=== PATIENT | male | born 1980 | race Caucasian/White ===

== ENCOUNTER 2021-01-16 14:38 | Emergency (ER) | payer OTHER, SELFPAY ==
[2021-01-16 14:48] VITALS: BP 120/95; PULSE 71; RESP 16; TEMP 36.8; O2SAT 98
[2021-01-16 14:55] VITALS: RESP 18
--- NOTE | 2021-01-16 15:15 | DI.RAD_ITS ---
Exam(s) XR ANKLE RT COMPLETE EXAM: XR ANKLE RT COMPLETE CLINICAL HISTORY: Overlying ulcer, r/o osteo. TECHNIQUE: 2D digital imaging was performed. COMPARISON: No exams were available for comparison FINDINGS: BONES: No acute fracture is present. There is a question of mild cortical disruption on the oblique view at the medial aspect of the medial malleolus. Developing osteomyelitis cannot be excluded. JOINTS: The ankle mortise is normally aligned. SOFT TISSUE: There is soft tissue swelling about the ankle medially. IMPRESSION: Question of mild cortical disruption on the oblique view at the medial aspect of the medial malleolus . Developing osteomyelitis cannot be excluded. If there is continued clinical concern an MRI may be considered for further evaluation. DATA REPOSITORY: RADIATION DOSE DELIVERED:
--- NOTE | 2021-01-16 15:34 | ED.GENADUL_ITS ---
Discharge Plan Disposition Patient Disposition: [facility] Condition: Stable Discharge Details Clinical Impression: Cellulitis Primary Care Provider: Gelacio Carrasco ED Provider: Scott Lynch Home Meds and New Rx's Prescriptions: New levofloxacin 750 mg tablet 750 mg PO DAILY Qty: 14 RF: 0 Continued acetaminophen [Tylenol] 325 MG tablet 650 mg PO TID RF: 0 naproxen 375 MG tablet 375 mg PO BID RF: 0 buprenorphine HCl 8 MG tablet, sublingual 16 mg PO DAILY RF: 0 pentoxifylline 400 mg Tablet Extended Release 800 mg PO TID RF: 0 docusate sodium 100 mg Capsule 100 mg PO BID RF: 0 timolol maleate 0.5 % Drops 20 drp DAILY RF: 0 Subtex 16 mg PO DAILY RF: 0 Discontinued cephalexin 500 MG capsule 500 mg PO Q6H Qty: 40 RF: 0 sulfamethoxazole-trimethoprim 1 TAB tablet 2 ea PO BID Qty: 40 RF: 0 Discharge Instructions Instructions: Cellulitis (ED) Additional Instructions: Levaquin as directed. I am giving you a 14-day supply, I would like you to evaluated by your [facility] team before the end of the 14 days, you would likely need to be on this medication for a total of 5 to 6 weeks. Continue dressing to the two wounds across to lower legs but the wound across your ankle, however orthopedic provider recommends wet-to-dry which they should be able to do at the present. Rest, elevate, cool and/or warm compresses as tolerated. Please watch for new or worsening symptoms and return to ER for any concerns. I do recommend reaching out to you regarding team tomorrow to make them aware of your visit today for outpatient reevaluation. Discharge Data Discharge Date/Time-TO BE ENTERED AT DEPARTURE: 01/16/21 18:30 Medical Decision Making 40-year-old gentleman who will reside in a corrections facility for the next 20- month, presents for acute on chronic bilateral leg wounds. Patient states the newest wound is approximately 2 weeks old. Denies fever. Patient is followed b y vascular at [facility] and scheduled for procedure in the next couple of weeks. Will obtain wound culture from his right ankle, CBC, CMP, and will likely initiate antibiotic therapy covering for MRSA. Also obtain x-ray of the right ankle where the new wound is for further evaluation of potential osteomyelitis. Patient remains afebrile. White blood cell count of 7.49, electrolytes unremarkable, creatinine 0.6 with a GFR greater than 60. X-ray read by virtual radiology as potential cortical disruption, cannot rule out osteomyelitis. I added on a sed rate and CRP, patient was already given a single dose of oral doxycycline. I will now consult with Dr. Pena, orthopedics. After discussing imaging, evaluation and presentation as well as laboratory values, he feels as though the patient can safely be discharged back to the corrections facility using a wet-to-dry dressing on the wound. He would like to initiate 750 p.o. Levaquin, 14 days from the ER, will give first dose now, patient will likely require a total of 6 weeks. He states he prefers Levaquin given its better bone penetration. He would like the patient to be evaluated by his [facility] team in the next 1-2 weeks, fortunately patient does already have an appointment set up. At this time he feels as though outpatient therapy is reasonable but if the patient becomes septic or toxic appearing that admission is likely indicated. Given the patient is on buprenorphine, will obtain baseline EKG. EKG obtained and then first dose of Levaquin given. Appropriate dressings applied to all wounds. Patient had a sandwich and drink coffee while here in the ER. Remains well, nontoxic appearing. Discussed work- up and plan with patient and traffic police officer. No additional questions or concerns and comfortable discharge at this time. Strict discharge and return precautions given. This documentation was generated using [employer] dictation system, please disregard any oddities of phrase or misspellings. CRP 2.15, sed rate 23 Medical Records Medical records reviewed: Yes I reviewed the patient's medical records. Imaging Data Radiologic Study: Attestation: I personally reviewed and interpreted this imaging study as follows: Imaging: X-Ray Radiologist's impression: Exam: XR Right Ankle Exam date and time: 01/16/2021 3:27 PM Age: 40 years old Clinical indication: Pain; Ankle; Right; Patient HX: Overlying ulcer, R/O osteo TECHNIQUE: Imaging protocol: XR Right ankle. Views: 3 or more views. COMPARISON: No relevant prior studies available. FINDINGS: Bones/joints: Mild cortical disruption is noted along the medial malleolus and may be consistent with developing osteomyelitis. There is no evidence of acute fracture. There is no evidence of joint malalignment or dislocation. Soft tissues: Overlying soft tissue swelling is present. Further evaluation is recommended. IMPRESSION: 1. Mild cortical disruption is noted along the medial malleolus and may be cons istent with developing osteomyelitis. Overlying soft tissue swelling is present. Further evaluation is recommended. 2. No evidence of acute fracture. 3. No evidence of acute dislocation. Lab Data Lab results reviewed: Yes I reviewed the patient's lab results. Labs: 01/16/21 17:15 Ankle - Right Wound Culture - Pending 01/16/21 17:15 Ankle - Right Gram Stain - Final 01/16/21 15:40 Ankle - Left Wound Culture - Pending 01/16/21 15:40 Ankle - Left Gram Stain - Final Laboratory Tests Range/Units 01/16/21 01/16/21 01/16/21 16:20 16:20 16:20 WBC (4.4-10.8) 10^3/uL 7.49 RBC (4.36-5.78) 10^6/uL 4.20 L Hgb (13.5-17.5) g/dL 12.3 L Hct (40.0-50.0) % 35.3 L MCV (80-95) fL 84.0 MCH (27.0-33.0) pg 29.3 MCHC (32.0-36.0) % 34.8 RDW (11.8-14.1) % 13.1 Plt Count (130-400) 10^3/uL 202 MPV (8.0-11.0) fL 9.1 Immature Gran % 0.3 Neutrophils % 54.9 Lymphocytes % 33.8 Monocytes % 9.2 Eosinophils % 1.7 Basophils % 0.1 Nucleated RBC % % 0 Absolute Neutrophils (1.2-6.7) 10^3/uL 4.11 Absolute Lymphocytes (1.2-3.4) 10^3/uL 2.53 Absolute Monocytes (0.1-0.8) 10^3/uL 0.69 Absolute Eosinophils (0.0-0.7) 10^3/uL 0.13 Absolute Basophils (0.0-0.2) 10^3/uL 0.01 ESR (0-15) mm/hr Sodium (136-145) mmol/L 139 Potassium (3.5-5.1) mmol/L 4.1 Chloride (98-107) mmol/L 105 Carbon Dioxide (21.0-32.0) mmol/L 27.1 Anion Gap (3-11) mmol/L 6.9 BUN (7-18) mg/dL 19 H Creatinine (0.70-1.30) mg/dL 0.6 L Estimated GFR/1.73 m2 (mL/min/1.73m2) >= 60.00 Glucose (74-106) mg/dL 98 Calcium (8.5-10.1) mg/dL 8.9 Total Bilirubin (0.2-1.0) mg/dL 0.8 AST (15-37) U/L 28 ALT (16-63) U/L 36 Alkaline Phosphatase (46-116) U/L 153 H C-Reactive Protein (0.0-0.3) mg/dL 2.15 H Total Protein (6.4-8.2) g/dL 8.0 Albumin (3.4-5.0) g/dL 3.7 Range/Units 01/16/21 16:20 WBC (4.4-10.8) 10^3/uL RBC (4.36-5.78) 10^6/uL Hgb (13.5-17.5) g/dL Hct (40.0-50.0) % MCV (80-95) fL MCH (27.0-33.0) pg MCHC (32.0-36.0) % RDW (11.8-14.1) % Plt Count (130-400) 10^3/uL MPV (8.0-11.0) fL Immature Gran % Neutrophils % Lymphocytes % Monocytes % Eosinophils % Basophils % Nucleated RBC % % Absolute Neutrophils (1.2-6.7) 10^3/uL Absolute Lymphocytes (1.2-3.4) 10^3/uL Absolute Monocytes (0.1-0.8) 10^3/uL Absolute Eosinophils (0.0-0.7) 10^3/uL Absolute Basophils (0.0-0.2) 10^3/uL ESR (0-15) mm/hr 23 H Sodium (136-145) mmol/L Potassium (3.5-5.1) mmol/L Chloride (98-107) mmol/L Carbon Dioxide (21.0-32.0) mmol/L Anion Gap (3-11) mmol/L BUN (7-18) mg/dL Creatinine (0.70-1.30) mg/dL Estimated GFR/1.73 m2 (mL/min/1.73m2) Glucose (74-106) mg/dL Calcium (8.5-10.1) mg/dL Total Bilirubin (0.2-1.0) mg/dL AST (15-37) U/L ALT (16-63) U/L Alkaline Phosphatase (46-116) U/L C-Reactive Protein (0.0-0.3) mg/dL Total Protein (6.4-8.2) g/dL Albumin (3.4-5.0) g/dL ECG Data Attestation: I personally reviewed and interpreted this ECG (s) as follows: Interpretation: Please see official report of pain. Sinus bradycardia, ventricular rate is 46. No STEMI. No interval prolongation. HPI General Mode of arrival: ambulatory . Date/Time Provider Initiated Documentation: 01/16/21 14:40 . Limitations to Documentation: no limitations . Information obtained by: patient and police (In police custody) . HPI Narrative: This is a 40-year-old gentleman, past medical history that includes hypertension, history of drug abuse, chronic leg wounds, osteomyelitis, currently in police custody and residing in corrections the next 20-month presenting for concerns of right lower extremity infection. Patient reports that he has had recurrent bilateral lower extremity infections and has poor circulation at baseline. Is followed at [facility] by vascular and scheduled to have the procedure in the next week or so, patient unsure of exact date and exactly what the procedure is. Patient states that he was on Keflex approximately 3 weeks ago for what appeared to be an infection of one of his chronic wounds. His primary concern today is a wound on his right ankle that has been present for approximately 2 weeks. He reports that the surrounding area is red, warm, painful, no obvious drainage. He denies any numbness, tingling, weakness, fever. Believes that his tetanus status is up-to-date. He denies rash or lesions elsewhere on his body. Related Data Home Medications Medication Instructions Recorded Confirmed acetaminophen [Tylenol] 650 mg PO TID 12/01/17 01/16/21 buprenorphine HCl 16 mg PO DAILY 12/01/17 01/16/21 naproxen 375 mg PO BID 12/01/17 12/01/17 Subtex 16 mg PO DAILY 01/16/21 01/16/21 docusate sodium 100 mg PO BID 01/16/21 01/16/21 levofloxacin 750 mg PO DAILY #14 tab 01/16/21 pentoxifylline 800 mg PO TID 01/16/21 01/16/21 timolol maleate 20 drp DAILY 01/16/21 01/16/21 Previous Rx's Medication Instructions Recorded levofloxacin 750 mg PO DAILY #14 tab 01/16/21 Allergies Allergy/AdvReac Type Severity Reaction Status Date / Time loperamide [From Imodium A-D] Allergy Intermediate Hives Unverified 01/16/21 14:58 tegaderm tape Allergy Mild Uncoded 01/16/21 14:58 General Stated Complaint: GenMedical HARPER: 3 Review of Systems Constitutional Constitutional: Denies fever(s) Cardiovascular Cardiovascular: Denies chest pain and Denies dyspnea Respiratory Respiratory: Denies dyspnea Musculoskeletal Musculoskeletal: Denies arthralgias, Denies numbness and Denies tingling Integumentary/Breasts Skin/Breast: Reports erythema Neurologic Neurologic: Denies numbness and Denies tingling [facility] Social History Smoking/Tobacco Use Status: Former Tobacco Use Smoking risk assessment performed?: Yes Alcohol Intake: never Substance use type: former substance user Do you feel safe in your relationship?: Yes Exam Const General: cooperative, comfortable and no acute distress Orientation: alert and awake [facility] Head: normal to inspection, normocephalic and atraumatic Eyes General: appearance normal, both eyes and all related structures Conjunctivae: conjunctivae normal Neck Neck: normal visual inspection, trachea midline and supple Resp Effort & Inspection: normal respiratory effort and able to speak in complete sentences Auscultation: clear to auscultation bilaterally Cardio Rate: regular rate Rhythm: regular rhythm Skin General skin exam: no rashes or lesions noted Neuro General: patient alert, patient awake, moves all extremities and no focal motor deficits Cognition: normal cognition Speech: speech normal Gait: normal gait Motor: muscle tone normal throughout Sensory Exam: no sensory deficits noted Extrem General: full ROM and capillary refill normal Other: Bilateral lower extremity chronic changes consistent with venous stasis. There are total of 3 separate wounds. He has a single wound bilateral lower extremities anterior tib region approximately 3 inches vertically, 1-1/2 horizontally. These wounds appear to be healing-scabbing. There is no drainage, weepage, surrounding erythema, warmth. Patient does have diffuse mild discomfort. Along his entire medial right ankle there is a superficial wound which is tender, borders are erythematous, there does appear to be a scant serous, potentially minimally purulent drainage. There is not appear to be any tunneling. Neuro, vascular, tendon intact. No bony point tenderness. No lymphangitic streaking. Capillary refill normal bilaterally. 1+ dorsalis pedal pulse bilateral. Psych Appearance: grossly normal Mental Status: mental status grossly normal Course Vital Signs Vital signs: Vital Signs Temperature 36.8 C 01/16/21 14:48 Pulse 71 01/16/21 14:48 Respiratory Rate 16 01/16/21 14:48 Blood Pressure 120/95 H 01/16/21 14:48 Pulse Oximetry 98 01/16/21 14:48 Temperature 36.8 C 01/16/21 14:48 Temperature Source Tympanic 01/16/21 14:48 Pulse 71 01/16/21 14:48 Respiratory Rate 18 01/16/21 14:55 Respiratory Effort Non-Labored 01/16/21 14:55 Respiratory Depth Normal 01/16/21 14:55 Respiratory Pattern Normal 01/16/21 14:55 Blood Pressure 120/95 H 01/16/21 14:48 Pulse Oximetry 98 01/16/21 14:48 Oxygen Delivery Method Room Air 01/16/21 14:48 Oxygen Flow Rate 0 01/16/21 14:48 Pain Level 8 01/16/21 14:48 Lab/Test Results Lab/Test Results: 01/16/21 15:33 Ankle - Left Wound Culture - Pending 01/16/21 15:33 Ankle - Left Gram Stain - Pending
[2021-01-16 16:27] LABS: Abs Immature Grans 0.02 10^3/uL (0.0-0.06); Absolute Basophil Count 0.01 10^3/uL (0.0-0.2); Absolute Eosinophil Count 0.13 10^3/uL (0.0-0.7); Absolute Lymphocyte Count 2.53 10^3/uL (1.2-3.4); Absolute Monocyte Count 0.69 10^3/uL (0.1-0.8); Absolute Neutrophil Count 4.11 10^3/uL (1.2-6.7); Basophils % 0.1; Eosinophils % 1.7; HCT 35.3 % (40.0-50.0); HGB 12.3 g/dL (13.5-17.5); Immature Grans % 0.3; Lymphocytes % 33.8; MCH 29.3 pg (27.0-33.0); MCHC 34.8 % (32.0-36.0); MPV 9.1 fL (8.0-11.0); Monocytes % 9.2; Neutrophils % 54.9; Nucleated RBC 0 %; Platelet Count 202 10^3/uL (130-400); RDW 13.1 % (11.8-14.1); RDW-SD 37.6 fL; WBC 7.49 10^3/uL (4.4-10.8)
[2021-01-16 16:43] LABS: ALT 36 U/L (16-63); AST 28 U/L (15-37); Albumin 3.7 g/dL (3.4-5.0); Alkaline Phosphatase 153 U/L (46-116); Anion Gap 6.9 mmol/L (3-11); BUN 19 mg/dL (7-18); Bilirubin, Total 0.8 mg/dL (0.2-1.0); CO2 27.1 mmol/L (21.0-32.0); CREATININE 0.6 mg/dL (0.70-1.30); Calcium 8.9 mg/dL (8.5-10.1); Chloride 105 mmol/L (98-107); Glucose 98 mg/dL (74-106); Potassium 4.1 mmol/L (3.5-5.1); Sodium 139 mmol/L (136-145)
--- NOTE | 2021-01-16 16:57 | DI.VRAD_ITS ---
PROCEDURE INFORMATION: Exam: XR Right Ankle Exam date and time: 01/16/2021 3:27 PM Age: 40 years old Clinical indication: Pain; Ankle; Right; Patient HX: Overlying ulcer, R/O osteo TECHNIQUE: Imaging protocol: XR Right ankle. Views: 3 or more views. COMPARISON: No relevant prior studies available. FINDINGS: Bones/joints: Mild cortical disruption is noted along the medial malleolus and may be consistent with developing osteomyelitis. There is no evidence of acute fracture. There is no evidence of joint malalignment or dislocation. Soft tissues: Overlying soft tissue swelling is present. Further evaluation is recommended. IMPRESSION: 1. Mild cortical disruption is noted along the medial malleolus and may be consistent with developing osteomyelitis. Overlying soft tissue swelling is present. Further evaluation is recommended. 2. No evidence of acute fracture. 3. No evidence of acute dislocation. Dictated and Authenticated by: Dajuan Jones MD. Ordering:WESTON Chavez MD
[2021-01-16 17:05] VITALS: BP 119/81; PULSE 58; TEMP 36.2; O2SAT 95
[2021-01-16] MEDS: Doxycycline Hyclate 100 MG CAP PO (17:09)
--- NOTE | 2021-01-16 17:15 | RT.EKG_ITS ---
APPROVED REPORT Exam: Resting ECG Reason for Exam: Infection Patient Location: E HR:46 bpm ECG Measurements Heart Rate 46 AXIS NH 173 P 32 QRSd 89 QRS 14 QT 442 T 33 QTc 386 Conclusion Sinus bradycardia...rate< 60. No STEMI. I have reviewed and interpreted ECG and agree with software generated interpretation.
[2021-01-16 17:25] LABS: ESR 23 mm/hr (0-15)
[2021-01-16 17:32] LABS: C-Reactive Protein 2.15 mg/dL (0.0-0.3)
[2021-01-16] MEDS: levoFLOXacin 500 MG, levoFLOXacin 250 MG 750 MG PO (18:26)
== END 2021-01-16 18:30 | disposition home or self-care (01) ==
PROVIDERS: Emergency Provider Physician Assistant; PCP Emergency Medicine
DX: L03.115 Cellulitis of right lower limb (principal); L97.311 Non-pressure chronic ulcer of right ankle limited to breakdown of skin; L97.329 Non-pressure chronic ulcer of left ankle with unspecified severity; F11.20 Opioid dependence, uncomplicated
CPT/HCPCS: 36415; 80053; 85652; 87077; 93005; 99285; 73610; 85025; 86140; 87070; 87186; 87205; 93010; 99284

== ENCOUNTER 2021-05-06 15:48 | Emergency (ER) | payer OTHER, SELFPAY ==
[2021-05-06 16:01] VITALS: BP 158/108; PULSE 64; RESP 18; TEMP 36.7; O2SAT 95
--- NOTE | 2021-05-06 16:14 | W.ED.GENAD ---
Discharge Plan Disposition Patient Disposition: [facility] Condition: Stable Discharge Details Clinical Impression: Cellulitis Primary Care Provider: Gelacio Carrasco ED Provider: Scott Lynch Home Meds and New Rx's Prescriptions: New levofloxacin 750 mg tablet 750 mg PO DAILY Qty: 14 RF: 0 Continued acetaminophen [Tylenol] 325 MG tablet 650 mg PO TID RF: 0 naproxen 375 MG tablet 375 mg PO BID RF: 0 buprenorphine HCl 8 MG tablet, sublingual 16 mg PO DAILY RF: 0 pentoxifylline 400 mg Tablet Extended Release 800 mg PO TID RF: 0 docusate sodium 100 mg Capsule 100 mg PO BID RF: 0 timolol maleate 0.5 % Drops 20 drp DAILY RF: 0 Subtex 16 mg PO DAILY RF: 0 nortriptyline 10 mg Capsule 10 mg PO DAILY RF: 0 Discharge Instructions Instructions: Cellulitis (ED) Additional Instructions: At this time you do not have elevated white count or fever but your lactate and inflammatory markers are elevated. We discussed admission but you have declined. Instead you would prefer to take oral antibiotics, continue your wound care at the corrections facility, and have your outpatient MRI through [facility] as already scheduled. As we discussed I do recommend additional wound care for your chronic wounds, I would talk with your facility provider to attempt to set this up. Please watch for new or worsening symptoms and return to the ER for any concern Discharge Data Discharge Date/Time-TO BE ENTERED AT DEPARTURE: 05/06/21 21:05 Medical Decision Making 40-year-old gentleman with chronic venous stasis changes bilateral lower extremities with ulcers, followed by vascular at [facility], currently resides in a corrections facility. Because he is in a correct facility he is not allowed to know the exact time or date of his MRI but states he was told he has an MRI of his bilateral lower extremities sometime in the next week or 2. Will provide a single gram of Tylenol now for analgesia. Clinically his pulse is in the 60s, he is afebrile, no evidence of toxicity or sepsis. Both wounds were dressed prior to arrival, undressed wounds for further evaluation. There does not appear to be any drainage for wound culture. No evidence of any lymphangitic streaking. Patient states that he is an extremely hard IV stick and would prefer attempts made with ultrasound. Multiple attempts for IV access made by multiple RNs with and without ultrasound, all unsuccessful. Lab was able to draw blood. Will obtain x-rays of bilateral tib-fib and feet for further evaluation of possible osteomyelitis. Laboratory values reveal a white blood cell count of 8.89. No evidence of anemia. Platelet count is 254. ESR is elevated at 23 and his lactate is also elevated at 2.4. CRP elevated at 2.47. his electrolytes are unremarkable, creatinine 0.8 with a GFR greater than 60. Urinalysis unremarkable for infection. Previous CRP in December was 2.15 and ESR was 23. No previous lactate. Bilateral tib-fib x-rays read as unremarkable per radiology. The left foot was read as unremarkable and the right foot was read as question of osteo versus artifact along his right great toe. Given this, obtained a dedicated view of the right great toe. This was read as negative per radiology. Upon reevaluation patient is resting comfortably, requesting his wounds be rewrapped. He is afebrile and his white count is unremarkable but his inflammatory markers and lactate are elevated. X-rays do not reveal any obvious osteomyelitis. Explained to him that an MRI is certainly more telling if osteoosteomyelitis and based upon his laboratory values and x-rays, I am not willing to say that he does not have osteomyelitis. We discussed admitting him at this time for IV antibiotics, and hopeful definitive MRI of his bilateral lower extremities to determine whether or not he has osteomyelitis. Patient declines admission. He states that these wounds are chronic in nature, he is followed by [facility], and would prefer to be discharged back to facility with his scheduled outpatient MRI. He does state that Levaquin worked well in the past. Reviewing his culture in December, Pseudomonas was patton sensitive. Will initiate a course of Levaquin again at this time. Patient also states that if he is out of his correction facility for a minimum of 24 hours then he will have to change his cell and be placed in quarantine. He would rather not do this and the chances MRI tomorrow is negative and he is subsequently just discharged back to his facility. I certainly understand his thought process and she is of sound mind to make this decision but I did stress the importance of his evaluation, elevated laboratory values, and the concern for osteomyelitis. Patient understands this but is requesting discharge. He also states that he does not want an IV placed after the numerous attempts already today and he knows that if he stays here to be admitted that there will be multiple more attempts made. Strict discharge and return precautions were provided. This documentation was generated using Linked[employer] dictation system, please disregard any oddities of phrase or misspellings. Medical Records Medical records reviewed: Yes I reviewed the patient's medical records. Imaging Data Radiologic Study: Attestation: I personally reviewed and interpreted this imaging study as follows: Imaging: X-Ray Radiologist's impression: PROCEDURE INFORMATION: Exam: XR Left Foot Exam date and time: 05/06/2021 4:41 PM Age: 40 years old Clinical indication: Other: Ulcer TECHNIQUE: Imaging protocol: XR Left foot. Views: 3 or more views. Total images: 3 COMPARISON: CR LEFT FOOT COMPLETE 12/01/2017 3:23 PM FINDINGS: Bones/joints: No acute fracture or malalignment. No destructive bone lesion. Soft tissues: Normal. IMPRESSION: 1. No acute fracture or malalignment. 2. No destructive bone lesion. Radiologic Study #2: Attestation: I personally reviewed and interpreted this imaging study as follows: Imaging: X-Ray Radiologist's impression: PROCEDURE INFORMATION: Exam: XR Right Foot Exam date and time: 05/06/2021 4:41 PM Age: 40 years old Clinical indication: Other: Ulcer TECHNIQUE: Imaging protocol: XR Right foot. Views: 3 or more views. Total images: 3 COMPARISON: CR XR ANKLE RT COMPLETE 01/16/2021 4:27 PM FINDINGS: Bones/joints: Demineralization versus artifactual projectional lucency at the lateral aspect of the great toe distal phalanx, seen only on the AP view. No acute fracture or malalignment. Soft tissues: Normal. IMPRESSION: 1. Lucency along the lateral aspect of the great toe distal phalanx seen only on the AP view may represent early acute osteomyelitis or projectional artifact. 2. No acute fracture or malalignment. Radiologic Study #3: Attestation: I personally reviewed and interpreted this imaging study as follows: Imaging: X-Ray Radiologist's impression: PROCEDURE INFORMATION: Exam: XR Right Tibia and Fibula Exam date and time: 05/06/2021 4:41 PM Age: 40 years old Clinical indication: Other: Ulcer TECHNIQUE: Imaging protocol: XR Right tibia and fibula. Views: 2 views. Total images: 4 COMPARISON: CR XR FOOT RT COMPLETE 05/06/2021 6:07 PM FINDINGS: Bones/joints: No destructive bone lesion. Soft tissues: There is soft tissue swelling. IMPRESSION: 1. No acute fracture or malalignment. 2. No destructive bone lesion. 3. Soft tissue swelling. Radiologic Study #4: Attestation: I personally reviewed and interpreted this imaging study as follows: Imaging: X-Ray Radiologist's impression: PROCEDURE INFORMATION: Exam: XR Left Tibia and Fibula Exam date and time: 05/06/2021 4:41 PM Age: 40 years old Clinical indication: Other: Ulcer TECHNIQUE: Imaging protocol: XR Left tibia and fibula. Views: 2 views. Total images: 4 COMPARISON: CR XR FOOT LT COMPLETE 05/06/2021 6:09 PM FINDINGS: Bones/joints: No acute fracture or malalignment. No destructive bone lesion. Soft tissues: There is soft tissue swelling. IMPRESSION: 1. No acute fracture or malalignment. 2. No destructive bone lesion. 3. Soft tissue swelling Radiologic Study #5: Attestation: I personally reviewed and interpreted this imaging study as follows: Imaging: X-Ray Radiologist's impression: PROCEDURE INFORMATION: Exam: XR Right Toe(s) Exam date and time: 05/06/2021 7:41 PM Age: 40 years old Clinical indication: Other: Ulcer TECHNIQUE: Imaging protocol: XR Right toes. Views: Minimum 2 views. Total images: 4 COMPARISON: CR XR TIB/FIB RT 05/06/2021 6:10 PM FINDINGS: Bones/joints: No destructive bone lesion. Lucency seen on same day right foot radiographs is likely artifactual. No acute fracture or malalignment. Soft tissues: Normal. IMPRESSION: 1. No acute fracture or malalignment. 2. No destructive bone lesion. Lab Data Lab results reviewed: Yes I reviewed the patient's lab results. Labs: Laboratory Tests Range/Units 05/06/21 05/06/21 05/06/21 16:40 19:00 19:00 WBC (4.4-10.8) 10^3/uL 8.89 RBC (4.36-5.78) 10^6/uL 4.74 Hgb (13.5-17.5) g/dL 13.7 Hct (40.0-50.0) % 38.5 L MCV (80-95) fL 81.2 MCH (27.0-33.0) pg 28.9 MCHC (32.0-36.0) % 35.6 RDW (11.8-14.1) % 12.9 Plt Count (130-400) 10^3/uL 254 MPV (8.0-11.0) fL 9.2 Immature Gran % 0.9 Neutrophils % 59.9 Lymphocytes % 30.5 Monocytes % 6.1 Eosinophils % 2.0 Basophils % 0.6 Nucleated RBC % % 0 Absolute Neutrophils (1.2-6.7) 10^3/uL 5.33 Absolute Lymphocytes (1.2-3.4) 10^3/uL 2.71 Absolute Monocytes (0.1-0.8) 10^3/uL 0.54 Absolute Eosinophils (0.0-0.7) 10^3/uL 0.18 Absolute Basophils (0.0-0.2) 10^3/uL 0.05 ESR Cancelled VBG Lactate (0.9-1.7) mmol/L 2.4 H* Sodium (136-145) mmol/L Potassium (3.5-5.1) mmol/L Chloride (98-107) mmol/L Carbon Dioxide (21.0-32.0) mmol/L Anion Gap (3-11) mmol/L BUN (7-18) mg/dL Creatinine (0.70-1.30) mg/dL Estimated GFR/1.73 m2 (mL/min/1.73m2) Glucose (74-106) mg/dL Calcium (8.5-10.1) mg/dL Total Bilirubin (0.2-1.0) mg/dL AST (15-37) U/L ALT (16-63) U/L Alkaline Phosphatase (46-116) U/L C-Reactive Protein (0.0-0.3) mg/dL Total Protein (6.4-8.2) g/dL Albumin (3.4-5.0) g/dL Urine Color (Yellow) Urine Clarity (Clear) Urine pH (5-8) Ur Specific [place] (1.005-1.025) Urine Protein (Negative) mg/dL Urine Ketones (Negative) mg/dL Urine Blood (Negative) Urine Nitrite (Negative) Urine Bilirubin (Negative) Urine Urobilinogen (Up TO 0.2) EU/dL Ur Leukocyte Esterase (Negative) Urine RBC (0-2) HPF Urine WBC (0-5) HPF Ur Epithelial Cells (Negative) HPF Urine Crystals (Negative) HPF Urine Bacteria (Negative) HPF Urine Casts (Negative) LPF Urine Mucus (Negative) Urine Other (Negative) Ur Culture Indicated? Urine Glucose (Negative) mg/dL Range/Units 05/06/21 05/06/21 19:00 20:45 WBC (4.4-10.8) 10^3/uL RBC (4.36-5.78) 10^6/uL Hgb (13.5-17.5) g/dL Hct (40.0-50.0) % MCV (80-95) fL MCH (27.0-33.0) pg MCHC (32.0-36.0) % RDW (11.8-14.1) % Plt Count (130-400) 10^3/uL MPV (8.0-11.0) fL Immature Gran % Neutrophils % Lymphocytes % Monocytes % Eosinophils % Basophils % Nucleated RBC % % Absolute Neutrophils (1.2-6.7) 10^3/uL Absolute Lymphocytes (1.2-3.4) 10^3/uL Absolute Monocytes (0.1-0.8) 10^3/uL Absolute Eosinophils (0.0-0.7) 10^3/uL Absolute Basophils (0.0-0.2) 10^3/uL ESR VBG Lactate (0.9-1.7) mmol/L Sodium (136-145) mmol/L 144 Potassium (3.5-5.1) mmol/L 4.5 Chloride (98-107) mmol/L 107 Carbon Dioxide (21.0-32.0) mmol/L 28.5 Anion Gap (3-11) mmol/L 8.5 BUN (7-18) mg/dL 14 Creatinine (0.70-1.30) mg/dL 0.8 Estimated GFR/1.73 m2 (mL/min/1.73m2) >= 60.00 Glucose (74-106) mg/dL 96 Calcium (8.5-10.1) mg/dL 8.9 Total Bilirubin (0.2-1.0) mg/dL 0.8 AST (15-37) U/L 30 ALT (16-63) U/L 36 Alkaline Phosphatase (46-116) U/L 166 H C-Reactive Protein (0.0-0.3) mg/dL 2.47 H Total Protein (6.4-8.2) g/dL 8.1 Albumin (3.4-5.0) g/dL 4.0 Urine Color (Yellow) Yellow Urine Clarity (Clear) Clear Urine pH (5-8) 7.0 Ur Specific [place] (1.005-1.025) 1.025 Urine Protein (Negative) mg/dL Trace H Urine Ketones (Negative) mg/dL Negative Urine Blood (Negative) Negative Urine Nitrite (Negative) Negative Urine Bilirubin (Negative) Negative Urine Urobilinogen (Up TO 0.2) EU/dL 0.2 Ur Leukocyte Esterase (Negative) Negative Urine RBC (0-2) HPF 0-2 Urine WBC (0-5) HPF Negative Ur Epithelial Cells (Negative) HPF Negative Urine Crystals (Negative) HPF Negative Urine Bacteria (Negative) HPF Negative Urine Casts (Negative) LPF Negative Urine Mucus (Negative) Negative Urine Other (Negative) Negative Ur Culture Indicated? No Urine Glucose (Negative) mg/dL Negative HPI General Mode of arrival: ambulatory. Date/Time Provider Initiated Documentation: 05/06/21 15:52. Limitations to Documentation: no limitations. Information obtained by: patient and police. HPI Narrative: This is a 40-year-old, currently resides at a corrections facility, past medical history that includes chronic venous stasis with ulcers, IV drug use over a year ago, presenting for acute on chronic bilateral lower extremity pain, wounds, concerned specifically for osteomyelitis. Patient states that he did have a vascular ablation to his lower extremities, bilaterally, at [facility] the end of the summer, symptoms improved for a couple of weeks but then returned to his baseline. Patient denies any fever but reports occasional chills. Patient states that he is scheduled to have an outpatient MRI of his bilateral lower extremities sometime in the next week or so, unsure of the exact date, through [facility]. Patient is presenting to the ER this evening for worsening pain, report moderate to severe, he did take Tylenol this afternoon. Reports that he changes his own dressings at the correction facility. He was seen in our ER over the summer and at that time placed on Levaquin, patient reports that symptoms were improving while on Levaquin but returned shortly after he discontinued the medication. He denies any recent illness or trauma. Related Data Home Medications Medication Instructions Recorded Confirmed acetaminophen [Tylenol] 650 mg PO TID 12/01/17 05/06/21 buprenorphine HCl 16 mg PO DAILY 12/01/17 05/06/21 naproxen 375 mg PO BID 12/01/17 05/06/21 Subtex 16 mg PO DAILY 01/16/21 05/06/21 docusate sodium 100 mg PO BID 01/16/21 05/06/21 pentoxifylline 800 mg PO TID 01/16/21 05/06/21 timolol maleate 20 drp DAILY 01/16/21 05/06/21 levofloxacin 750 mg PO DAILY #14 tab 05/06/21 nortriptyline 10 mg PO DAILY 05/06/21 05/06/21 Previous Rx's Medication Instructions Recorded levofloxacin 750 mg PO DAILY #14 tab 05/06/21 Allergies Allergy/AdvReac Type Severity Reaction Status Date / Time loperamide [From Imodium A-D] Allergy Intermediate Hives Unverified 05/06/21 16:08 tegaderm tape Allergy Mild Uncoded 05/06/21 16:08 General Stated 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: 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: 3 Review of Systems Constitutional Constitutional: Denies fatigue, Denies fever(s) and Denies weakness Cardiovascular Cardiovascular: Denies chest pain and Denies dyspnea Respiratory Respiratory: Denies cough and Denies dyspnea Gastrointestinal Gastrointestinal: Denies abdominal pain, Denies nausea and Denies vomiting Musculoskeletal Musculoskeletal: Denies back pain, Denies numbness and Denies tingling Integumentary/Breasts Skin/Breast: Reports erythema Neurologic Neurologic: Denies numbness, Denies tingling and Denies weakness Endocrine Endocrine: Denies fatigue Hematologic/Lymphatic Hematologic/Lymphatic: Denies easy bleeding and Denies easy bruising [facility] Social History Smoking/Tobacco Use Status: Former Tobacco Use Smoking risk assessment performed?: Yes Alcohol Intake: never Drug use: Never Substance use type: former substance user Do you feel safe in your relationship?: Yes Exam Const General: cooperative, comfortable and no acute distress Orientation: alert, awake and oriented x3 HENMT Head: normal to inspection, normocephalic and atraumatic Face and sinus: normal facial exam Eyes General: appearance normal, both eyes and all related structures Conjunctivae: conjunctivae normal Neck Neck: normal visual inspection, trachea midline and supple Resp Effort & Inspection: normal respiratory effort and able to speak in complete sentences Auscultation: clear to auscultation bilaterally Cardio Rate: regular rate Rhythm: regular rhythm GI Palpation: soft and nontender Back/Spine/Pelvis Back: No back tenderness Skin Rashes: no rashes Neuro General: patient alert, patient awake, moves all extremities and no focal motor deficits Cognition: normal cognition Speech: speech normal Gait: antalgic Motor: muscle tone normal throughout and strength 5/5 throughout Sensory Exam: no sensory deficits noted Extrem General: full ROM and capillary refill normal Other: Bilateral lower extremities below the knees with diffuse chronic venous stasis changes. He has 2 large noncircumferential ulcers to each anterior-medial tib-fib. He has a single dime size satellite lesion to the right superior tib-fib joint. He has mild skin breakdown to the left foot between the great and second toe but no ulcer. There is no drainage, induration, fluctuance anywhere along his lower extremities. He has diffuse discomfort throughout with mild erythema but again this appears to be more chronic venous stasis changes than acute cellulitis. No ulcer appears to have any aspect of deep burrowing. 1+ dorsalis pedal pulse bilaterally and normal capillary refill. Neuro, vascular, tendon intact. Calf is unremarkable. No discomfort or palpable cord. Negative Homans' sign bilaterally. Psych Appearance: grossly normal Mental Status: mental status grossly normal Course Vital Signs Vital signs: Vital Signs Temperature 36.7 C 05/06/21 16:01 Pulse 64 05/06/21 16:01 Respiratory Rate 18 05/06/21 16:01 Blood Pressure 158/108 H 05/06/21 16:01 Pulse Oximetry 95 05/06/21 16:01 Temperature 36.7 C 05/06/21 16:01 Temperature Source Skin 05/06/21 16:01 Pulse 64 05/06/21 16:01 Respiratory Rate 18 05/06/21 16:01 Respiratory Effort 05/06/21 16:06 Blood Pressure 158/108 H 05/06/21 16:01 Blood Pressure Position Sitting 05/06/21 16:01 Pulse Oximetry 95 05/06/21 16:01 Oxygen Delivery Method Room Air 05/06/21 16:01 Oxygen Flow Rate 0 11/10/21 16:01 Pain Level 8 05/06/21 16:01
--- NOTE | 2021-05-06 16:30 | DI.RAD_ITS ---
Exam(s) XR FOOT LT COMPLETE EXAM: XR FOOT LT COMPLETE CLINICAL HISTORY: ulcer, r/o osteo. TECHNIQUE: 2D digital imaging was performed. COMPARISON: CR,XR XR FOOT RT COMPLETE from 05/06/2021 FINDINGS: BONES: No acute fracture is present. No bony destructive lesion is seen. JOINTS: No dislocation present. SOFT TISSUE: Normal. IMPRESSION: Unremarkable radiographs of the left foot. DATA REPOSITORY: RADIATION DOSE DELIVERED:
--- NOTE | 2021-05-06 18:22 | DI.RAD_ITS ---
Exam(s) XR TIB/FIB LT EXAM: XR TIB/FIB LT CLINICAL HISTORY: ulcer, r/o osteo. TECHNIQUE: 2D digital imaging was performed COMPARISON: CR,XR XR TIB/FIB RT from 05/06/2021 FINDINGS: BONES: No acute fracture is present. No bony destructive lesion is seen. Visualized portion of knee a nd ankle joints are unremarkable. SOFT TISSUE: Diffuse soft tissue edema. IMPRESSION: Soft tissue edema, otherwise unremarkable radiographs of the left tibia and fibula. DATA REPOSITORY: RADIATION DOSE DELIVERED:
--- NOTE | 2021-05-06 18:22 | DI.RAD_ITS ---
Exam(s) XR TOE RT GREAT XR FOOT RT COMPLETE EXAM: XR TOE RT GREAT CLINICAL HISTORY: osteo?. TECHNIQUE: 2D digital imaging was performed. COMPARISON: CR,XR XR FOOT RT COMPLETE from 05/06/2021 CR,XR XR FOOT LT COMPLETE from 05/06/2021 CR,XR XR FOOT RT COMPLETE from 05/06/2021 FINDINGS: BONES: No acute fracture is present. No bony destructive lesion is seen. JOINTS: No dislocation present. Mild degenerative changes. SOFT TISSUE: Normal. IMPRESSION: No evidence of acute fracture, dislocation, or subluxation. DATA REPOSITORY: RADIATION DOSE DELIVERED:
--- NOTE | 2021-05-06 18:22 | DI.RAD_ITS ---
Exam(s) XR TIB/FIB RT EXAM: XR TIB/FIB RT CLINICAL HISTORY: ulcer, r/o osteo. TECHNIQUE: 2D digital imaging was performed. COMPARISON: No exams were available for comparison FINDINGS: BONES: No acute fracture is present. No bony destructive lesion is seen. Visualized portion of knee a nd ankle joints are unremarkable. SOFT TISSUE: Diffuse soft tissue edema. No foreign body. IMPRESSION: Soft tissue edema, otherwise unremarkable radiographs of the right tibia and fibula. DATA REPOSITORY: RADIATION DOSE DELIVERED:
--- NOTE | 2021-05-06 18:29 | DI.VRAD_ITS ---
PROCEDURE INFORMATION: Exam: XR Left Foot Exam date and time: 05/06/2021 4:41 PM Age: 40 years old Clinical indication: Other: Ulcer TECHNIQUE: Imaging protocol: XR Left foot. Views: 3 or more views. Total images: 3 COMPARISON: CR LEFT FOOT COMPLETE 12/01/2017 3:23 PM FINDINGS: Bones/joints: No acute fracture or malalignment. No destructive bone lesion. Soft tissues: Normal. IMPRESSION: 1. No acute fracture or malalignment. 2. No destructive bone lesion. Dictated and Authenticated by: Iliana Coles MD. Ordering:WESTON Chavez MD
--- NOTE | 2021-05-06 18:32 | DI.VRAD_ITS ---
PROCEDURE INFORMATION: Exam: XR Right Foot Exam date and time: 05/06/2021 4:41 PM Age: 40 years old Clinical indication: Other: Ulcer TECHNIQUE: Imaging protocol: XR Right foot. Views: 3 or more views. Total images: 3 COMPARISON: CR XR ANKLE RT COMPLETE 01/16/2021 4:27 PM FINDINGS: Bones/joints: Demineralization versus artifactual projectional lucency at the lateral aspect of the great toe distal phalanx, seen only on the AP view. No acute fracture or malalignment. Soft tissues: Normal. IMPRESSION: 1. Lucency along the lateral aspect of the great toe distal phalanx seen only on the AP view may represent early acute osteomyelitis or projectional artifact. 2. No acute fracture or malalignment. Dictated and Authenticated by: Iliana Coles MD. Ordering:WESTON Chavez MD
--- NOTE | 2021-05-06 18:33 | DI.VRAD_ITS ---
PROCEDURE INFORMATION: Exam: XR Right Tibia and Fibula Exam date and time: 05/06/2021 4:41 PM Age: 40 years old Clinical indication: Other: Ulcer TECHNIQUE: Imaging protocol: XR Right tibia and fibula. Views: 2 views. Total images: 4 COMPARISON: CR XR FOOT RT COMPLETE 05/06/2021 6:07 PM FINDINGS: Bones/joints: No destructive bone lesion. Soft tissues: There is soft tissue swelling. IMPRESSION: 1. No acute fracture or malalignment. 2. No destructive bone lesion. 3. Soft tissue swelling. Dictated and Authenticated by: Iliana Coles MD. Ordering:WESTON Chavez MD
--- NOTE | 2021-05-06 18:34 | DI.VRAD_ITS ---
PROCEDURE INFORMATION: Exam: XR Left Tibia and Fibula Exam date and time: 05/06/2021 4:41 PM Age: 40 years old Clinical indication: Other: Ulcer TECHNIQUE: Imaging protocol: XR Left tibia and fibula. Views: 2 views. Total images: 4 COMPARISON: CR XR FOOT LT COMPLETE 05/06/2021 6:09 PM FINDINGS: Bones/joints: No acute fracture or malalignment. No destructive bone lesion. Soft tissues: There is soft tissue swelling. IMPRESSION: 1. No acute fracture or malalignment. 2. No destructive bone lesion. 3. Soft tissue swelling. Dictated and Authenticated by: Iliana Coles MD. Ordering:WESTON Chavez MD
[2021-05-06 19:10] LABS: Abs Immature Grans 0.08 10^3/uL (0.0-0.06); Absolute Basophil Count 0.05 10^3/uL (0.0-0.2); Absolute Eosinophil Count 0.18 10^3/uL (0.0-0.7); Absolute Lymphocyte Count 2.71 10^3/uL (1.2-3.4); Absolute Monocyte Count 0.54 10^3/uL (0.1-0.8); Absolute Neutrophil Count 5.33 10^3/uL (1.2-6.7); Basophils % 0.6; HCT 38.5 % (40.0-50.0); HGB 13.7 g/dL (13.5-17.5); Immature Grans % 0.9; Lymphocytes % 30.5; MCH 28.9 pg (27.0-33.0); MCHC 35.6 % (32.0-36.0); MCV 81.2 fL (80-95); MPV 9.2 fL (8.0-11.0); Monocytes % 6.1; Neutrophils % 59.9; Nucleated RBC 0 %; Platelet Count 254 10^3/uL (130-400); RBC 4.74 10^6/uL (4.36-5.78); RDW 12.9 % (11.8-14.1); RDW-SD 38.3 fL; WBC 8.89 10^3/uL (4.4-10.8)
[2021-05-06 19:18] LABS: Lactate 2.4 mmol/L (0.9-1.7)
[2021-05-06] MEDS: Acetaminophen 500 MG TAB 1000 MG PO (19:20)
[2021-05-06 19:35] LABS: Calcium 8.9 mg/dL (8.5-10.1); Glucose 96 mg/dL (74-106)
[2021-05-06 19:36] LABS: BUN 14 mg/dL (7-18); CREATININE 0.8 mg/dL (0.70-1.30); Total Protein 8.1 g/dL (6.4-8.2)
[2021-05-06 19:37] LABS: AST 30 U/L (15-37); Alkaline Phosphatase 166 U/L (46-116); Anion Gap 8.5 mmol/L (3-11); Bilirubin, Total 0.8 mg/dL (0.2-1.0); CO2 28.5 mmol/L (21.0-32.0); Chloride 107 mmol/L (98-107); Potassium 4.5 mmol/L (3.5-5.1); Sodium 144 mmol/L (136-145)
[2021-05-06 19:38] LABS: ALT 36 U/L (16-63); C-Reactive Protein 2.47 mg/dL (0.0-0.3)
--- NOTE | 2021-05-06 19:58 | NUR.NOTE ---
1900 wounds unwrapped for doctor to be able to examinewounds. 2000 [place],banana,chips, soda given per patient request.Nursing Note:
--- NOTE | 2021-05-06 19:59 | DI.VRAD_ITS ---
PROCEDURE INFORMATION: Exam: XR Right Toe(s) Exam date and time: 05/06/2021 7:41 PM Age: 40 years old Clinical indication: Other: Ulcer TECHNIQUE: Imaging protocol: XR Right toes. Views: Minimum 2 views. Total images: 4 COMPARISON: CR XR TIB/FIB RT 05/06/2021 6:10 PM FINDINGS: Bones/joints: No destructive bone lesion. Lucency seen on same day right foot radiographs is likely artifactual. No acute fracture or malalignment. Soft tissues: Normal. IMPRESSION: 1. No acute fracture or malalignment. 2. No destructive bone lesion. Dictated and Authenticated by: Iliana Coles MD. Ordering:WESTON Chavez MD
[2021-05-06] MEDS: levoFLOXacin 500 MG, levoFLOXacin 250 MG 750 MG PO (20:57)
[2021-05-06 21:28] LABS: Bilirubin Negative (Negative); Blood Negative (Negative); Clarity Clear (Clear); Glucose Negative (Negative); Ketones Negative (Negative); Leukocyte Esterase Negative (Negative); Nitrite Negative (Negative); Specific Gravity 1.025 (1.005-1.025); Urobilinogen 0.2 EU/dL (Up TO 0.2)
[2021-05-06 21:29] LABS: Bacteria Negative HPF (Negative); C & S Indicated? No; Casts Negative LPF (Negative); Crystals Negative HPF (Negative); Epithelial Cells Negative HPF (Negative); Mucus Negative (Negative); Other Cells Negative (Negative); RBC 0-2 HPF (0-2); WBC Negative HPF (0-5)
== END 2021-05-06 21:05 | disposition home or self-care (01) ==
PROVIDERS: Emergency Provider Physician Assistant; PCP Emergency Medicine
DX: L03.116 Cellulitis of left lower limb (principal); L03.115 Cellulitis of right lower limb; L97.829 Non-pressure chronic ulcer of other part of left lower leg with unspecified severity; L97.819 Non-pressure chronic ulcer of other part of right lower leg with unspecified severity
CPT/HCPCS: 80053; 85652; 99284; 73590; 73630; 73660; 81003; 81015; 83605; 85025; 86140

== ENCOUNTER → 2021-10-30 01:36 | Outpatient (CLI) | payer OTHER, SELFPAY ==
--- NOTE | 2021-10-30 09:15 | DI.MRI_ITS ---
Exam(s) MR LOWER EXTREMITY RT WO EXAM: MR LOWER EXTREMITY RT WO CLINICAL HISTORY: CHRONIC FOOT ULCERS, POSSIBLE OSTEOMYELITIS TECHNIQUE: Multiplanar multisequence MRI was performed. COMPARISON: CR,XR XR TOE RT GREAT from 05/06/2021 CR,XR XR TIB/FIB LT from 05/06/2021 CR,XR XR TIB/FIB RT from 05/06/2021 MR MR LOWER EXTREMITY LT WO from 10/30/2021 FINDINGS: SKIN-SUBCUTANEOUS TISSUE: There is no evidence of skin ulcer in the region of the heel. There is sub cutaneous signal abnormality adjacent to the distal phalanx of the 2nd toe. However, there is presen tly no confluent hypointense intraosseous signal on T1 images at this level nor prominent intraosseou s hyper intense signal on STIR imaging to suggest osteomyelitis at this level nor elsewhere in the ri ght foot. MARROW:There is no evidence of fracture, bone contusion, nor avascular necrosis. There are no signif icant osseous lesions. ARTICULATIONS: No joint effusions. No evidence of para-articular ganglion. MUSCLES: There is no evidence of abnormal signal nor mass in the visualized muscles.No tendon tears. No tenosynovitis. EXTRAMUSCULAR SOFT TISSUES: No abnormal signal, mass, or fluid collection. No evidence of interdigit al Jay's neuroma. OTHER: None. IMPRESSION: 1. Second toe findings as described above but no convincing evidence of osteomyelitis at this time. If clinically indicated follow-up MRI can be performed. DATA REPOSITORY:
--- NOTE | 2021-10-30 09:15 | DI.MRI_ITS ---
Exam(s) MR LOWER EXTREMITY LT WO EXAM: MR LOWER EXTREMITY LT WO CLINICAL HISTORY: CHRONIC FOOT ULCERS, POSSIBLE OSTEOMYELITIS TECHNIQUE: Multiplanar multisequence MRI was performed. This study was limited to the distal half of the foot COMPARISON: MR MR EXTREMITY FOOT W/WO CONTRAST from 01/21/2018 FINDINGS: SKIN-SUBCUTANEOUS TISSUE: There is skin and subcutaneous tissue changes of the distal aspect of the 1 st, 2nd, 3rd toes. MARROW:There is no evidence of fracture, bone contusion, nor avascular necrosis. There are no signif icant osseous lesions. There is no confluent hypointense T1 signal within the bone marrow of the phalanges to suggest the pr esence of osteomyelitis. In addition, stir fluid sensitive sequences do not reveal intraosseous gabrielle a. ARTICULATIONS: No prominent joint effusions. No evidence of para-articular ganglion. MUSCLES: There is no evidence of abnormal signal nor mass in the visualized muscles.No obvious tendon tears nor tenosynovitis. EXTRAMUSCULAR SOFT TISSUES: No abnormal signal, mass, or fluid collection. OTHER: None. IMPRESSION: 1. Soft tissue findings but no convincing evidence of osteomyelitis at this time. If clinically remedios cated follow-up MRI after appropriate clinical interval can be performed. DATA REPOSITORY:
== END ==
PROVIDERS: PCP Emergency Medicine; Visit Provider Emergency Medicine
DX: L97.819 Non-pressure chronic ulcer of other part of right lower leg with unspecified severity (principal); L97.829 Non-pressure chronic ulcer of other part of left lower leg with unspecified severity; M79.89 Other specified soft tissue disorders
CPT/HCPCS: 73718